=== PATIENT | female | born 1965 | race Caucasian/White ===

== ENCOUNTER → 2018-05-02 | Outpatient (CLI) | payer OTHER ==
--- NOTE | 2018-05-02 08:40 | US ---
EXAMINATION TYPE: US abdomen complete DATE OF EXAM: 05/02/2018 COMPARISON: NONE CLINICAL HISTORY: R14.0 Abdominal distension, R10.10 Upper abd pain. Bloating after meals EXAM MEASUREMENTS: Liver Length: 15.3 cm Gallbladder Wall: 0.2 cm CBD: 0.5 cm Spleen: 8.4 cm Right Kidney: 9.5 x 3.8 x 4.0 cm Left Kidney: 9.9 x 5.6 x 4.7 cm Pancreas: Duct visualized measuring 0.22 cm Liver: wnl Gallbladder: wnl Evidence for sonographic Charles's sign: No CBD: wnl Spleen: wnl Right Kidney: No hydronephrosis or masses seen Left Kidney: No hydronephrosis. Cystic area upper pole visualized measuring 1.5 x 1.6 x 1.5 cm Upper IVC: wnl Abd Aorta: wnl The liver is homogenous. The intrahepatic portion of the IVC and proximal abdominal aorta are within normal limits. There is no evidence of cholelithiasis. Common bile duct is unremarkable. The visu alized portions of the pancreas are homogenous. The spleen is unremarkable. Kidneys are symmetric a nd free of hydronephrosis. IMPRESSION: 1. Pancreatic duct is upper limits of normal measuring 0.22 cm (abnormal is a value of equal to or gr eater than 0.25 cm). This finding is of undetermined clinical significance and could be further evalu ated with MRCP if there is further clinical concern. No discrete pancreatic lesion is seen on ultraso und. 2. Benign-appearing 1.6 cm left renal cyst of the upper pole. 3. No sonographic evidence of cholelithiasis or acute cholecystitis.
== END ==
LOC: RADUSWWP 07:17
PROVIDERS: ATTEND Family Medicine
DX: N28.1 Cyst of kidney, acquired (principal); R10.10 Upper abdominal pain, unspecified
CPT/HCPCS: 76700

== ENCOUNTER → 2018-11-18 | Outpatient (CLI) | payer OTHER ==
[2018-11-18 12:47] LABS: Basophils # (A) 0.1 k/uL (0-0.2); Basophils % (A) 1 %; Eosinophils # (A) 0.1 k/uL (0-0.7); Eosinophils % (A) 2 %; HCT 44.2 % (34.0-46.0); HGB 14.1 gm/dL (11.4-16.0); Lymphocytes # (A) 1.9 k/uL (1.0-4.8); Lymphocytes % (A) 28 %; MCH 30.1 pg (25.0-35.0); MCHC 31.9 g/dL (31.0-37.0); MCV 94.6 fL (80.0-100.0); Mean Platelet Volume 7.5; Monocytes # (A) 0.3 k/uL (0-1.0); Monocytes % (A) 4 %; Neutrophils # (A) 4.4 k/uL (1.3-7.7); Neutrophils % (A) 63 %; Platelet Count 297 k/uL (150-450); RBC 4.67 m/uL (3.80-5.40); RDW 13.8 % (11.5-15.5); WBC 7.1 k/uL (3.8-10.6)
== END | disposition home or self-care (01) ==
LOC: LABPAT 11:13
PROVIDERS: ATTEND Surgery
DX: Z01.812 Encounter for preprocedural laboratory examination (principal); K21.9 Gastro-esophageal reflux disease without esophagitis
CPT/HCPCS: 85025

== ENCOUNTER 2018-11-20 09:57 | Observation (INO) | payer OTHER ==
[~2018-11-20 09:57] MED LIST: DEXAMETHASONE SOD PHOSPHATE 10 MG/ML 1 ML VIAL IV ONE; HEPARIN SODIUM,PORCINE 5,000 UNIT/ML 1 ML VIAL SQ ONE; LIDOCAINE 1% 20 ML VIAL (10MG/ML) FOR IV START INTRADERMA PRN; MIDAZOLAM 2 MG/2 ML VIAL IV PRN; ONDANSETRON 4 MG/2 ML VIAL IVP ONE; fentaNYL (PF) 50 MCG/ML 2 ML AMP IV PRN
[2018-11-20] MEDS: LACTATED RINGERS 1,000 ML IV SCH (10:32)
--- NOTE | 2018-11-20 11:34 | P.GSHP ---
History of Present Illness H&P Date: 11/20/18 Chief Complaint: GERD This is a 53-year-old female referred from Dr. Julia Piña.The patient has had long-standing problems with reflux esophagitis. The patient underwent recent EGD is found have evidence of esophagitis. Patient has been well informed on the procedure of laparoscopic Cori fundoplication. The patient is aware the risk of the conversion to the open procedure, risk of injury to the stomach, liver and spleen. The patient is also a risk of recurrent GERD and dysphagia symptoms. The patient understands there is a postoperative diet of full liquids for 2 weeks after surgery. Past Medical History Past Medical History: Diabetes Mellitus, GERD/Reflux, Osteoarthritis (OA), Pneumonia Additional Past Medical History / Comment(s): Chronic back pain, numbness/ tingling left arm and leg. Hx Pneumonia. Hx Gestational Diabetes. History of Any Multi-Drug Resistant Organisms: None Reported Past Surgical History: Orthopedic Surgery, Tubal Ligation Additional Past Surgical History / Comment(s): LEEP PROCEDURE, bunion surgery right foot. Past Anesthesia/Blood Transfusion Reactions: No Reported Reaction Past Psychological History: No Psychological Hx Reported Smoking Status: Current every day smoker Past Alcohol Use History: None Reported Additional Past Alcohol Use History / Comment(s): STARTED SMOKING AT AGE 18, 1/2 PPD. Past Drug Use History: Marijuana Additional Drug Use History / Comment(s): MEDICAL MARIJUANA, USES DAILY. AWARE NOT TO USE 24 HRS PRIOR TO PROCEDURE. - Past Family History Father Family Medical History: Cancer Mother Family Medical History: Cancer Medications and Allergies Home Medications Medication Instructions Recorded Confirmed Type Cyclobenzaprine [Flexeril] 5 mg PO TID PRN 11/14/18 11/20/18 History Ibuprofen [Motrin] 800 mg PO TID PRN 11/14/18 11/20/18 History valACYclovir HCL [Valtrex] 1,000 mg PO DIRECTED PRN 11/14/18 11/20/18 History Allergies Allergy/AdvReac Type Severity Reaction Status Date / Time povidone-iodine Allergy Itching,burning Verified 11/20/18 10:08 [From Betadine] skin soap [From Betadine] Allergy Itching,burning Verified 11/20/18 10:08 skin Surgical - Exam Vital Signs Temp Pulse Resp BP Pulse Ox 97 F L 67 15 115/72 97 11/20/18 10:30 11/20/18 10:30 11/20/18 10:30 11/20/18 10:30 11/20/18 10:30 - General well developed, well nourished, no distress - Eyes PERRL - ENT normal pinna - Neck no masses - Respiratory normal expansion - Cardiovascular Rhythm: regular - Abdomen Abdomen: soft, non tender Assessment and Plan Assessment: GERD. We'll perform laparoscopic Cori fundal plication.
[2018-11-20] MEDS ORDERED: PROPOFOL 10 MG/ML 20 ML VIAL IV ONE (12:01)
[2018-11-20] MEDS ORDERED: GLYCOPYRROLATE 0.2 MG/ML 2 ML VIAL ONE (12:01)
[2018-11-20] MEDS ORDERED: MIDAZOLAM 2 MG/2 ML VIAL ONE (12:01)
[2018-11-20] MEDS ORDERED: NEOSTIGMINE 1 MG/ML 10 ML VIAL ONE (12:01)
[2018-11-20] MEDS ORDERED: LIDOCAINE 1% INJ 10MG/ML (20 ML MDV) ONE (12:01)
[2018-11-20] MEDS ORDERED: ROCURONIUM BROMIDE 10 MG/ML 10 ML VIAL IV ONE (12:01)
[2018-11-20] MEDS ORDERED: fentaNYL (PF) 50 MCG/ML 2 ML AMP ONE (12:01)
[2018-11-20] MEDS ORDERED: LACTATED RINGERS 1,000 ML IV ONE ×2 (12:24→14:00)
[2018-11-20] MEDS ORDERED: BUPIVACAINE (PF) 0.5% 30 ML VIAL SQ ONE (12:31)
--- NOTE | 2018-11-20 13:02 | P.OP ---
Date of Procedure: 11/20/18 Preoperative Diagnosis: GERD Postoperative Diagnosis: GERD Procedure(s) Performed: Laparoscopic Cori fundoplication Anesthesia: RAYMOND Surgeon: Jacob Meyer Estimated Blood Loss (ml): 5 Pathology: none sent Condition: stable Disposition: PACU Description of Procedure: HThe patient was placed on the operating table in the supine position. The patient received general anesthesia. And was placed in dorsal lithotomy position. The patient was prepped and draped in the usual sterile fashion. The skin incision sites were anesthetized with 1% local Xylocaine. The skin was incised in the left periumbilical area and then using a blade less 5 mm trocar under direct visualization panel cavity was entered. After adequate insufflation the laparoscope was then placed into the peritoneal cavity. Next a 5 mm trochars placed in the right epigastric position. Another 5 millimeter trocar the right lateral position. Another 5 millimeter trocar in the left lateral position a 5 mm trocar is placed in the left epigastric position. And then the initial 5 mm trocar was exchanged for a 10 mm trocar. The left lateral lobe liver was retracted. The hernia was seen. The crural defect was then dissected using the Harmonic scissors device. A 360 crural dissection was performed the esophagus stomach was reduced back into the peritoneal Cavity. The crural defect was then closed using 2-0 Ethibond suture. Next the fundus of the stomach was mobilized using the [place] scissors device. and then a 58- Italian bougie dilator was placed oropharynx passed into the esophagus and stomach the fundal plication wrap was then performed by grasping the fundus posteriorly and bringing it around the esophagus and stomach fundoplication was then performed using 2-0 Ethibond suture. Care was taken that the fundal location rested over top of the intra-abdominal esophagus. There was no injury seen to the stomach or esophagus. The dilator was then withdrawn. The abdomen was irrigated there is no bleeding seen. The trochars were then withdrawn and then skin incision sites were closed using 3-0 Monocryl suture Steri-Strips are applied. Patient thought procedure well and sent to recovery room in stable condition.
[2018-11-20] MEDS ORDERED: ONDANSETRON 4 MG/2 ML VIAL IVP PRN (13:03)
[2018-11-20] MEDS ORDERED: HYDROmorphone 1 MG/ML 1 ML SYRINGE IVP PRN (13:03)
[2018-11-20] MEDS ORDERED: ALBUTEROL NEBULIZED 2.5 MG/3 ML INHALATION ONE (13:22)
[2018-11-20] MEDS: HYDROmorphone 0.5 MG/0.5 ML SYRINGE IVP PRN ×2 (13:49→13:56)
[2018-11-20] MEDS ORDERED: ONDANSETRON 4 MG/2 ML VIAL IVP ONE (14:07)
[2018-11-20] MEDS: D5-0.45% NACL WITH KCL 20MEQ/L 1,000 ML IV SCH ×2 (17:25→23:26)
[2018-11-20] MEDS ORDERED: Acetaminophen-Codeine 300-30mg TAB PO PRN (21:31)
--- NOTE | 2018-11-20 23:04 | P.CONS ---
History of Present Illness - Reason for Consult Consult date: 11/20/18 Medical management - Chief Complaint Status post Cori fundoplication - History of Present Illness Patient is a 52-year-old female with a known history of gestational diabetes, osteoarthritis, long history of GERD and chronic back pain on medical marijuana and also currently everyday smoker was admitted to the hospital due to tach to Cori fundoplication surgery. Patient has been having chronic GERD-like symptoms and recent EGD showed esophagitis. Patient opted for hiatal hernia surgery. Currently patient denied any complaints of chest pain or shortness of breath. Abdominal soreness is improving. Does have some nausea. No vomiting. No fever no chills. No headache or dizziness or lightheadedness. Postoperatively patient was hypotensive with SBP greater than 185 mmHg. Review of Systems Constitutional: Patient denies any fever or chills . No generalized weakness or weight loss. Abdomen: Patient denied nausea vomiting and diarrhea and abdominal pain. Soreness at the surgical site Cardiovascular: Patient denies any chest pain or short of breath no palpitations. Respiratory: patient denied any cough is from production. No shortness of breath Neurologic: Patient denied any numbness or tingling headache. Musculoskeletal: Patient denies any complaints of joint swelling or deformity. Skin: Negative Psychiatric: Negative Endocrine: No heat or cold intolerance. No recent weight gain. Genitourinary: No dysuria or hematuria. All other 14 point ROS negative except the above Past Medical History Past Medical History: Diabetes Mellitus, GERD/Reflux, Osteoarthritis (OA), Pneumonia Additional Past Medical History / Comment(s): Chronic back pain, nu mbness/tingling left arm and leg. Hx Pneumonia. Hx Gestational Diabetes. History of Any Multi-Drug Resistant Organisms: None Reported Past Surgical History: Orthopedic Surgery, Tubal Ligation Additional Past Surgical History / Comment(s): LEEP PROCEDURE, bunion surgery right foot. Past Anesthesia/Blood Transfusion Reactions: No Reported Reaction Past Psychological History: No Psychological Hx Reported Smoking Status: Current every day smoker Past Alcohol Use History: None Reported Additional Past Alcohol Use History / Comment(s): STARTED SMOKING AT AGE 18, 1/2 PPD. Past Drug Use History: Marijuana Additional Drug Use History / Comment(s): MEDICAL MARIJUANA, USES DAILY. AWARE NOT TO USE 24 HRS PRIOR TO PROCEDURE. - Past Family History Father Family Medical History: Cancer Mother Family Medical History: Cancer Medications and Allergies Home Medications Medication Instructions Recorded Confirmed Type Cyclobenzaprine [Flexeril] 5 mg PO TID PRN 11/14/18 11/20/18 History Ibuprofen [Motrin] 800 mg PO TID PRN 11/14/18 11/20/18 History valACYclovir HCL [Valtrex] 1,000 mg PO DIRECTED PRN 11/14/18 11/20/18 History Allergies Allergy/AdvReac Type Severity Reaction Status Date / Time povidone-iodine Allergy Itching,burning Verified 11/20/18 10:08 [From Betadine] skin soap [From Betadine] Allergy Itching,burning Verified 11/20/18 10:08 skin Physical Exam Vitals: Vital Signs Temp Pulse Pulse Resp BP Pulse Ox 11/20/18 14:35 53 L 16 149/70 97 11/20/18 14:20 52 L 16 162/81 95 11/20/18 14:15 50 L 16 98 11/20/18 14:05 49 L 16 163/88 98 11/20/18 14:00 51 L 18 155/77 97 11/20/18 13:50 97.9 F 60 14 181/79 95 11/20/18 13:45 59 L 20 160/77 97 11/20/18 13:30 60 16 170/73 100 11/20/18 13:15 73 16 185/89 99 11/20/18 13:07 97.4 F L 90 16 112/74 99 11/20/18 10:30 97 F L 67 15 115/72 97 Intake and Output 11/20/18 11/20/18 11/20/18 06:59 14:59 22:59 Intake Total 2250 Output Total 10 Balance 2240 Intake: IV 2250 Output: Estimated Blood Loss 10 PHYSICAL EXAMINATION: Patient is lying in the bed comfortably, no acute distress, awake alert and oriented.. HEENT: Normocephalic. Neck is supple. Pupils reactive. Nostrils clear. Oral cavity is moist. Ears reveal no drainage. Neck reveals no JVD, carotid bruits, or thyromegaly. CHEST EXAMINATION: Trachea is central. Symmetrical expansion. Lung ring clear to auscultation and percussion. CARDIAC: Normal S1, S2 with no gallops. No murmurs ABDOMEN: Soft. Nontender. Bowel sounds present. No organomegaly. No abdominal bruits. Extremities: reveal no edema. No clubbing or cyanosis Neurologically awake, alert, oriented x3 with well-coordinated movements. No focal deficits noted Skin: No rash or skin lesions. Psychiatric: Coperative. Nonsuicidal Musculoskeletal: No joint swelling or deformity. Normal range of motion. Assessment and Plan Assessment: GERD and esophagitis. Status post Cori fundoplication. Postoperative day 0 Gestational diabetes. Currently not on any medications at home Osteoarthritis Chronic back pain and on medical marijuana Nicotine addiction DVT prophylaxis with Lovenox Plan: Patient will be continued on gentle hydration. Continue with the DVT prophylaxis and incentive spirometry. Encourage ambulation. Pain management. Monitor CBG. Follow-up CBC and BMP tomorrow. Further recommendations based on the clinical course. Thank you for your consult. Time with Patient: Greater than 30
[2018-11-21] MEDS: LACTATED RINGERS 1,000 ML IV SCH (06:13)
[2018-11-21] MEDS: D5-0.45% NACL WITH KCL 20MEQ/L 1,000 ML IV SCH (08:17)
[2018-11-21] MEDS ORDERED: ENOXAPARIN 40 MG/0.4 ML SYRINGE SQ SCH (09:00)
[2018-11-21 09:02] LABS: Basophils % (A) 0 %; Eosinophils # (A) 0.1 k/uL (0-0.7); Eosinophils % (A) 1 %; HGB 12.1 gm/dL (11.4-16.0); Lymphocytes # (A) 1.9 k/uL (1.0-4.8); Lymphocytes % (A) 20 %; MCH 30.4 pg (25.0-35.0); MCHC 32.8 g/dL (31.0-37.0); MCV 92.7 fL (80.0-100.0); Mean Platelet Volume 7.4; Monocytes # (A) 0.6 k/uL (0-1.0); Monocytes % (A) 6 %; Neutrophils # (A) 6.7 k/uL (1.3-7.7); Neutrophils % (A) 71 %; Platelet Count 274 k/uL (150-450); RBC 3.99 m/uL (3.80-5.40); RDW 13.8 % (11.5-15.5); WBC 9.4 k/uL (3.8-10.6)
--- NOTE | 2018-11-21 09:20 | FL ---
EXAMINATION TYPE: FL esophagus cervic/pharynx DATE OF EXAM: 11/21/2018 LIMITED UGI-ESOPHAGRAM: CLINICAL HISTORY: Hiatal hernia and epigastric pain reflux-like symptoms, Jayy fundoplication surge ry yesterday. TECHNIQUE: Limited esophagram is performed utilizing 20 oz of Isovue 370. A total of 15 seconds of f luoroscopic time was utilized during procedure. 21 spot images are saved. FINDINGS: The patient swallowed contrast without difficulty or delay. Esophageal peristalsis and mo tility are within normal limits. There is good flow of contrast along the diaphragmatic hiatus into t he stomach, there is no evidence of contrast extravasation to suggest leak. No persistent hiatal corbin ia is seen. Patient remains asymptomatic. Tiny amount of free air below right hemidiaphragm is consis tent with history of recent intra-abdominal surgery IMPRESSION: No evidence of leak or significant obstruction status post Jayy fundoplication surgery yesterday.
[2018-11-21 09:22] LABS: African American GFR (CKD) >90 (>60 ml/min/1.73 sqM); Anion Gap 7 mmol/L; Blood Urea Nitrogen 10 mg/dL (7-17); Carbon Dioxide 25 mmol/L (22-30); Chloride 107 mmol/L (98-107); Glucose 92 mg/dL (74-99); Potassium 4.1 mmol/L (3.5-5.1); Sodium 139 mmol/L (137-145)
[2018-11-21 09:48] VITALS: BP 142/87; PULSE 54; RESP 20; TEMP 97.6
[2018-11-21 13:08] VITALS: BMI 30.7
--- NOTE | 2018-11-21 14:13 | P.DS ---
Providers Date of admission: 11/20/18 23:32 Expected date of discharge: 11/21/18 Attending physician: Jacob Meyer Consults: 11/20/18 13:03 Consult Physician Routine Consulting Provider: Bernardo Perez Consult Reason/Comments: Medical management Do you want consulting provider notified?: Yes Primary care physician: [facility] Course: 53-year-old female who underwent laparoscopic Cori fundoplication with Dr. Meyer. Patient is doing well postoperatively without any immediate complications. She is tolerating clear liquid diet. Her pain is controlled on oral medications. Vital signs have been stable. Esophagram completed postoperatively negative for leak or obstruction. Patient is stable for discharge home today. Please see EMR for further hospital course details. Discharge diagnosis 1. GERD, status post laparoscopic Cori fundoplication Nurse practitioner note has been reviewed by physician. Signing provider agrees with the documented findings, assessment, and plan of care. Patient Condition at Discharge: Good Plan - Discharge Summary Discharge Rx Participant: Yes New Discharge Prescriptions: New Acetaminophen-Codeine 300-30mg [Tylenol w/codeine #3] 2 each PO Q6HR PRN #12 tab PRN Reason: MODERATE Pain No Action Cyclobenzaprine [Flexeril] 5 mg PO TID PRN PRN Reason: Muscle Spasm valACYclovir HCL [Valtrex] 1,000 mg PO DAILY PRN PRN Reason: Cold Sores Ibuprofen [Motrin] 800 mg PO TID PRN PRN Reason: Pain Discharge Medication List Cyclobenzaprine [Flexeril] 5 mg PO TID PRN 11/14/18 [History] Ibuprofen [Motrin] 800 mg PO TID PRN 11/14/18 [History] valACYclovir HCL [Valtrex] 1,000 mg PO DAILY PRN 11/14/18 [History] Acetaminophen-Codeine 300-30mg [Tylenol w/codeine #3] 2 each PO Q6HR PRN #12 tab 11/21/18 [Rx] Follow up Appointment(s)/Referral(s): Jacob Meyer MD [STAFF PHYSICIAN] - 12/03/18 3:00 pm Activity/Diet/Wound Care/Special Instructions: full liquid diet for 2 weeks handout given and dietary has seen patient. No lifting pushing pulling over 10 pounds You may shower. No soaking or tub baths swimming pools Very light activity until you are reevaluated at your follow up appointment with your surgeon. Call physician with any questions comments concerns worsening returning symptoms, fever 101.1 or higher, not tolerating diet, not tolerating fluids, pain not controlled by medications prescribed. Appt for follow up has been made for you. Discharge Disposition: HOME SELF-CARE
== END 2018-11-21 11:40 | disposition home or self-care (01) ==
LOC: OR 09:57 → 6PED 13:03 → OR 23:31 → 6PED 23:32
PROVIDERS: ADMIT Surgery; ATTEND Surgery
DX: K21.0 Gastro-esophageal reflux disease with esophagitis (principal); I95.81 Postprocedural hypotension; R11.0 Nausea; M19.90 Unspecified osteoarthritis, unspecified site; G89.29 Other chronic pain; M54.9 Dorsalgia, unspecified; R20.0 Anesthesia of skin; R20.2 Paresthesia of skin; F17.210 Nicotine dependence, cigarettes, uncomplicated; Z79.1 Long term (current) use of non-steroidal anti-inflammatories (NSAID); Z79.899 Other long term (current) drug therapy; Z88.8 Allergy status to other drugs, medicaments and biological substances; Z86.32 Personal history of gestational diabetes; Z98.51 Tubal ligation status; Z87.01 Personal history of pneumonia (recurrent); Z80.9 Family history of malignant neoplasm, unspecified
CPT/HCPCS: 43280; 96372; 86900; 86901; 80048; 85025; 86850; 74210; G0378 ×2; J2250; J1644; J1100; J2710; J0690; J2405; J2001; J1650; J3010; J1170 ×2; J2704; Q9967

== ENCOUNTER → 2019-07-04 | Outpatient (CLI) | payer OTHER ==
--- NOTE | 2019-07-04 09:00 | NM ---
EXAMINATION TYPE: NM hepatobiliary w CCK DATE OF EXAM: 07/04/2019 COMPARISON: Abdominal ultrasound dated 05/02/2018 HISTORY: Abdominal pain TECHNIQUE: After the intravenous administration of 5.1 mCi Tc 99m Mebrofenin hepatobiliary scintigrap hy is performed. Immediate images post injection. FINDINGS: There is satisfactory initial accumulation of tracer by the liver. The gallbladder is visualized wit hin 8 minutes. The small bowel activity is noted within 10 minutes. At one hour CCK was administere d, patient was injected with 1.3 mcg of Kinevac, and gallbladder ejection fraction is calculated at 9 3 %, elevated. Therefore there is no scintigraphic evidence of cystic or common bile duct obstructio n to suggest acute cholecystitis or gallbladder dyskinesia. IMPRESSION: Biliary hyperkinesia with elevated ejection fraction of 93%. No scintigraphic evidence of acute or chronic cholecystitis.
== END | disposition home or self-care (01) ==
LOC: RADNMMAIN 06:54
PROVIDERS: ATTEND Surgery
DX: K83.8 Other specified diseases of biliary tract (principal)
CPT/HCPCS: 78227; A9537; J2805

== ENCOUNTER 2019-07-15 06:35 | Day surgery (SDC) | payer OTHER ==
[2019-07-11 10:41] VITALS: BMI 28.3
[~2019-07-15 06:35] MED LIST changes: +HYDROmorphone 0.5 MG/0.5 ML SYRINGE IVP PRN; +LACTATED RINGERS 1,000 ML IV SCH; -LIDOCAINE 1% 20 ML VIAL (10MG/ML) FOR IV START INTRADERMA PRN; -ONDANSETRON 4 MG/2 ML VIAL IVP ONE; +SCOPOLAMINE 1.5MG/72HR PATCH TRANSDERM ONE; -fentaNYL (PF) 50 MCG/ML 2 ML AMP IV PRN
[2019-07-15] MEDS ORDERED: LIDOCAINE 1% (10MG/ML) FOR IV START INTRADERMA ONE (07:20)
[2019-07-15] MEDS: ONDANSETRON 4 MG/2 ML VIAL IVP ONE ×2 (07:20→08:56)
[2019-07-15] MEDS ORDERED: HYDROmorphone (PF) 1 MG/ML ONE (07:48)
[2019-07-15] MEDS ORDERED: NEOSTIGMINE 1 MG/ML 10 ML VIAL ONE (07:48)
[2019-07-15] MEDS ORDERED: ROCURONIUM BROMIDE 10 MG/ML 5 ML VIAL IV ONE (07:48)
[2019-07-15] MEDS ORDERED: MIDAZOLAM 2 MG/2 ML VIAL ONE (07:48)
[2019-07-15] MEDS ORDERED: LIDOCAINE 1% INJ 10MG/ML (20 ML MDV) ONE (07:48)
[2019-07-15] MEDS ORDERED: PROPOFOL 10 MG/ML 20 ML VIAL IV ONE (07:48)
[2019-07-15] MEDS ORDERED: GLYCOPYRROLATE 0.2 MG/ML 2 ML VIAL ONE (07:48)
[2019-07-15] MEDS ORDERED: fentaNYL (PF) 50 MCG/ML 2 ML AMP ONE (07:48)
[2019-07-15] MEDS ORDERED: KETOROLAC 30 MG/ML 1 ML VIAL ONE (07:48)
[2019-07-15] MEDS ORDERED: SUCCINYLCHOLINE CHLORIDE 100 MG/5 ML SYR IV ONE (07:48)
--- NOTE | 2019-07-15 07:58 | P.GSHP ---
History of Present Illness H&P Date: 07/15/19 Chief Complaint: Right upper quadrant pain This a 54-year-old female presents today for laparoscopic cholecystectomy. Patient points of abdominal pain. Her recent HIDA scan shows an abnormal ejection fraction. Past Medical History Past Medical History: GERD/Reflux, Osteoarthritis (OA), Pneumonia Additional Past Medical History / Comment(s): MIGRAINES, HX OF GERD-RESOLVED WITH HIATAL HERNIA REPAIR., GESTATIONAL DIABETES, PNEUMONIA YRS AGO., CONSTIPATION ,C/O PAIN AND BLOATING. History of Any Multi-Drug Resistant Organisms: None Reported Past Surgical History: Orthopedic Surgery, Tubal Ligation Additional Past Surgical History / Comment(s): LEEP PROCEDURE, bunion surgery right foot., LAPAROSCOPIC DANITZA FUNDOPLICATION (10/2018) Past Anesthesia/Blood Transfusion Reactions: No Reported Reaction Past Psychological History: No Psychological Hx Reported Smoking Status: Current every day smoker Past Alcohol Use History: None Reported Additional Past Alcohol Use History / Comment(s): STARTED SMOKING AT AGE 18, SMOKES 1/2 PPD. Past Drug Use History: Marijuana Additional Drug Use History / Comment(s): CURRENT MARIJUANA USE. AWARE NOT TO USE 24 HRS PRIOR TO PROCEDURE. - Past Family History Father Family Medical History: Cancer Mother Family Medical History: Cancer Medications and Allergies Home Medications Medication Instructions Recorded Confirmed Type Ibuprofen [Motrin] 800 mg PO TID PRN 11/14/18 07/15/19 History Acetaminophen-Codeine 300-30mg 1 each PO DIRECTED PRN 07/11/19 07/15/19 History [Tylenol w/codeine #3] Temazepam [Restoril] 30 mg PO HS PRN 07/11/19 07/15/19 History Allergies Allergy/AdvReac Type Severity Reaction Status Date / Time povidone-iodine Allergy Itching,burning Verified 07/11/19 10:07 [From Betadine] skin soap [From Betadine] Allergy Itching,burning Verified 07/11/19 10:07 skin Surgical - Exam Vital Signs Temp Pulse Resp BP Pulse Ox 97.4 F L 69 16 129/68 96 07/15/19 07:05 07/15/19 07:05 07/15/19 07:05 07/15/19 07:05 07/15/19 07:05 - General well developed, well nourished, no distress - Eyes PERRL - ENT normal pinna - Neck no masses - Respiratory normal expansion - Cardiovascular Rhythm: regular - Abdomen Abdomen: soft, non tender Assessment and Plan Assessment: Right quadrant pain Chronic cholecystitis We'll perform laparoscopic cholecystectomy
[2019-07-15] MEDS ORDERED: BUPIVACAINE (PF) 0.25% 30 ML VIAL SQ ONE (08:24)
[2019-07-15 08:54] VITALS: TEMP 97
--- NOTE | 2019-07-15 09:03 | P.OP ---
Date of Procedure: 07/15/19 Preoperative Diagnosis: Cholecystitis Postoperative Diagnosis: Cholecystitis Procedure(s) Performed: Laparoscopic cholecystectomy Anesthesia: RAYMOND Surgeon: Jacob Meyre Estimated Blood Loss (ml): 5 Pathology: other (Gallbladder) Condition: stable Disposition: PACU Description of Procedure: The patient was placed on the operating table. The patient received a general endotracheal tube anesthesia. The patients abdomen was prepped and draped in the usual sterile fashion. Through an infraumbilical stab incision, the fascia of the anterior abdominal wall was grasped with a pair of Kochers and then the Veress needle was placed in the peritoneal cavity. Position of the Veress needle was confirmed with positive drop test. The abdomen was then insufflated. After adequate insufflation, the 10 mm trocar was placed in the peritoneal cavity. Following this the laparoscope was placed in the peritoneal cavity. The patient was placed in the head-up, right side up position and then a 5 mm trocar was placed in the right lateral and right subcostal position under direct visualization. A 8 mm trocar was placed in the epigastric position. The gallbladder was grasped in the fundus and infundibulum. Traction on the gallbladder was placed in the lateral and the cephalad positions. The triangle of Calot was visualized.. The cystic duct was bluntly dissected until the union of the cystic duct and common bile duct was seen. A critical view of safety was achieved. The cystic duct was then divided and sealed with the Harmonic scissors. A PDS Endoloop was then placed throughout the cystic duct stump. The cystic artery divided and sealed with the Harmonic scissors. The gallbladder was then removed from the liver bed using Harmonic scissors. The gallbladder was then extracted through the epigastric port site. Operative field was checked for any bleeding spots and Harmonic scissors was used to coagulate the liver bed. The abdomen was irrigated. The trocars were removed. The skin was closed using interrupted 3-0 Vicryl suture. Dermabond dressing were applied. The patient tolerated the procedure well.
[2019-07-15] MEDS ORDERED: diphenhydrAMINE 50 MG/ML 1 ML VIAL IVP ONE (09:35)
[2019-07-15 11:46] VITALS: BP 102/61; PULSE 61; RESP 16
== END 2019-07-15 12:32 | disposition home or self-care (01) ==
LOC: OR 06:35
PROVIDERS: ATTEND Surgery
DX: K81.1 Chronic cholecystitis (principal); M19.90 Unspecified osteoarthritis, unspecified site; Z87.01 Personal history of pneumonia (recurrent); Z86.32 Personal history of gestational diabetes; Z98.51 Tubal ligation status; Z98.890 Other specified postprocedural states; F17.210 Nicotine dependence, cigarettes, uncomplicated; Z80.9 Family history of malignant neoplasm, unspecified; Z79.1 Long term (current) use of non-steroidal anti-inflammatories (NSAID); Z79.891 Long term (current) use of opiate analgesic; Z88.3 Allergy status to other anti-infective agents
CPT/HCPCS: 88304; 47562; J2250; J1200; J1644; J1100; J2710; J0690; J2405; J2001; J3010; J1885; J1170 ×2; J0330; J2704

== ENCOUNTER 2020-09-09 09:46 | Day surgery (SDC) | payer OTHER ==
[2020-09-07 10:48] VITALS: BMI 30.1
[2020-09-09 10:32] VITALS: TEMP 98
[2020-09-09] MEDS ORDERED: LACTATED RINGERS 1,000 ML IV ONE (10:35)
[2020-09-09] MEDS ORDERED: LIDOCAINE 1% (10MG/ML) FOR IV START INTRADERMA ONE (10:36)
[2020-09-09] MEDS ORDERED: LIDOCAINE 1% INJ 10MG/ML (20 ML MDV) ONE (11:10)
[2020-09-09] MEDS ORDERED: GLUCAGON 1 MG/ML VIAL ONE (11:10)
[2020-09-09] MEDS ORDERED: PROPOFOL 10 MG/ML 20 ML VIAL IV ONE (11:10)
--- NOTE | 2020-09-09 11:10 | P.GSHP ---
History of Present Illness H&P Date: 09/09/20 Chief Complaint: GERD, constipation This a 55-year-old female presents today for EGD colonoscopy. She he has had issues with GERD constipation diverticulitis. Past Medical History Past Medical History: GERD/Reflux, Osteoarthritis (OA), Pneumonia, Skin Disorder Additional Past Medical History / Comment(s): MIGRAINES, HX HIATAL HERNIA REPAIR., GESTATIONAL DIABETES, PNEUMONIA YRS AGO., CONSTIPATION, small bowel movement, some incontinence of stool, abdominal PAIN AND BLOATING. high BP when in pain-no rx, eczema, neuropathy shivani legs History of Any Multi-Drug Resistant Organisms: None Reported Past Surgical History: Cholecystectomy, Orthopedic Surgery, Tubal Ligation Additional Past Surgical History / Comment(s): LEEP PROCEDURE, bunion surgery right foot., LAPAROSCOPIC DANITZA FUNDOPLICATION (10/2018), left eye tear duct surgery Past Anesthesia/Blood Transfusion Reactions: No Reported Reaction Smoking Status: Current every day smoker - Past Family History Father Family Medical History: Cancer Mother Family Medical History: Cancer Medications and Allergies Home Medications Medication Instructions Recorded Confirmed Type Temazepam [Restoril] 30 mg PO HS PRN 07/11/19 09/09/20 History Gabapentin [Neurontin] 300 mg PO TID 09/07/20 09/09/20 History Naproxen 500 mg PO BID PRN 09/07/20 09/09/20 History Allergies Allergy/AdvReac Type Severity Reaction Status Date / Time povidone-iodine Allergy Itching,burning Verified 09/07/20 10:35 [From Betadine] skin,rash soap [From Betadine] Allergy Itching,burning Verified 09/07/20 10:35 skin,rash acetaminophen [From [place]] AdvReac Nausea Verified 09/07/20 10:35 hydrocodone [From [place]] AdvReac Nausea Verified 09/07/20 10:35 Surgical - Exam Vital Signs Temp Pulse Resp BP Pulse Ox 98.0 F 69 16 163/73 98 09/09/20 10:31 09/09/20 10:31 09/09/20 10:31 09/09/20 10:31 09/09/20 10:31 - General well developed, well nourished, no distress - Eyes PERRL - ENT normal pinna - Neck no masses - Respiratory normal expansion - Cardiovascular Rhythm: regular - Abdomen Abdomen: soft, non tender Assessment and Plan Assessment: . Constipation history Dr. Modi. We'll perform EGD and colonoscopy
--- NOTE | 2020-09-09 11:35 | P.OP ---
Date of Procedure: 09/09/20 Preoperative Diagnosis: Constipation Gastritis Postoperative Diagnosis: Antral gastritis Possible slipped fundoplication wrap Procedure(s) Performed: EGD Colonoscopy Anesthesia: MAC Surgeon: Jacob Meyer Pathology: other (Antrum, esophagus) Condition: stable Disposition: PACU Description of Procedure: The patient's placed on the endoscopy table in the lateral position. She received IV sedation. The gastroscope placed oropharynx passed in the esophagus and the stomach. The scope was placed through the pylorus. The first and second portion of the duodenum appeared normal. Scope was brought back the antrum this was mildly inflamed. A biopsies performed. Scope was retroflexed meters some appeared normal. There is known to hiatal hernia. The GE junction was at 39 7 is. It appears the fundoplication wrap was just below the esophagus. The distal esophagus was mildly inflamed. Biopsies performed. The proximal esophagus appeared normal. Scope was withdrawn for patient. Next digital rectal exam was performed which revealed no abnormalities. The flexible colonoscope was then placed patient anus passed throughout the entire colon. Ileocecal valve lesions. The cecum, ascending and transverse colon appeared normal. In the descending and sigmoid was mild diverticular changes. Scope summer back the rectum and this appeared normal. Scope was withdrawn for patient.
[2020-09-09 12:03] VITALS: BP 136/80; PULSE 68; RESP 16
== END 2020-09-09 12:32 | disposition home or self-care (01) ==
LOC: ORWHC2ENDO 09:46
PROVIDERS: ATTEND Surgery
DX: K21.00 Gastro-esophageal reflux disease with esophagitis, without bleeding (principal); K57.30 Diverticulosis of large intestine without perforation or abscess without bleeding; K29.70 Gastritis, unspecified, without bleeding; K59.00 Constipation, unspecified; M19.90 Unspecified osteoarthritis, unspecified site; Z87.01 Personal history of pneumonia (recurrent); L30.9 Dermatitis, unspecified; G43.909 Migraine, unspecified, not intractable, without status migrainosus; G62.9 Polyneuropathy, unspecified; Z90.49 Acquired absence of other specified parts of digestive tract; Z98.51 Tubal ligation status; Z98.890 Other specified postprocedural states; F17.200 Nicotine dependence, unspecified, uncomplicated; Z80.9 Family history of malignant neoplasm, unspecified; Z88.5 Allergy status to narcotic agent; Z88.8 Allergy status to other drugs, medicaments and biological substances
CPT/HCPCS: 88305; 45378; 43239; J1610; J2001; J2704

== ENCOUNTER → 2022-11-29 | Outpatient (CLI) | payer OTHER ==
--- NOTE | 2022-11-29 20:27 | CT ---
EXAMINATION TYPE: CT abdomen w con DATE OF EXAM: 11/29/2022 COMPARISON: None INDICATION: Incisional hernia without obstruction. PT also concerned for BB marked area on LT side DLP: 524.30 mGycm, Automated exposure control for dose reduction was used. CONTRAST: 100 mL of Isovue 300. Study performed with Oral Contrast TECHNIQUE: Axial images were obtained from above the diaphragm to the iliac crests in the axial plane at 5 mm thick sections. Reconstructed images are reviewed on the computer in the coronal plane. FINDINGS: Limited CT sections are obtained the lung bases. The lung bases are clear. CT ABDOMEN: Liver: Normal Spleen: Normal Pancreas: Normal Adrenal glands: Left adrenal gland is thickened at 1.7 cm. Right adrenal gland appears normal. Gallbladder: Normal Kidneys: No masses are evident. No hydronephrosis is present. There is a 2.3 cm cyst on the left ki dney small cortical renal cysts in the upper medial right kidney on delayed images. Aorta: Vascular calcification is within the aorta. Inferior vena cava: Normal. Loops of bowel within the abdomen are normal. There are loops of bowel which are incompletely di stended or lack oral contrast limiting their evaluation. BB boyle an area of concern in the left flank of the patient, series 6 image 38. No subcutaneous abno rmality is evident. Abdominal wall at this level appears normal. No suspicious abnormality radiograph ically apparent. Abdominal wall appears intact. No abdominal wall hernia is identified IMPRESSIONS: 1. No suspicious areas for hernia or masses
== END | disposition home or self-care (01) ==
LOC: RADCTMAIN 11:42
PROVIDERS: ATTEND Surgery
DX: K43.2 Incisional hernia without obstruction or gangrene (principal)
CPT/HCPCS: 74160; Q9967

== ENCOUNTER 2022-12-25 05:54 | Day surgery (SDC) | payer OTHER ==
[~2022-12-25 05:54] MED LIST changes: +ACETAMINOPHEN TAB 500 MG TAB PO PRN; -DEXAMETHASONE SOD PHOSPHATE 10 MG/ML 1 ML VIAL IV ONE; -HEPARIN SODIUM,PORCINE 5,000 UNIT/ML 1 ML VIAL SQ ONE; +HEPARIN SODIUM,PORCINE/PF 5,000 UNIT/0.5 ML SYRINGE SQ PRN; -HYDROmorphone 0.5 MG/0.5 ML SYRINGE IVP PRN; -LACTATED RINGERS 1,000 ML IV SCH; -MIDAZOLAM 2 MG/2 ML VIAL IV PRN; +Pre Op ABX Message 1 EACH MISC MISCELLANE ONE; -SCOPOLAMINE 1.5MG/72HR PATCH TRANSDERM ONE
[2022-12-25] MEDS ORDERED: ONDANSETRON 4 MG/2 ML VIAL IVP ONE (06:35)
[2022-12-25] MEDS ORDERED: LACTATED RINGERS 1,000 ML IV SCH (06:35)
[2022-12-25] MEDS ORDERED: DEXAMETHASONE SOD PHOSPHATE 4 MG/ML 1 ML VIAL IV ONE (06:35)
[2022-12-25 07:03] LABS: Basophils % (A) 0 %; Eosinophils # (A) 0.2 k/uL (0-0.7); Eosinophils % (A) 2 %; HCT 42.9 % (34.0-46.0); HGB 14.3 gm/dL (11.4-16.0); Lymphocytes # (A) 2.8 k/uL (1.0-4.8); Lymphocytes % (A) 39 %; MCH 31.2 pg (25.0-35.0); MCHC 33.3 g/dL (31.0-37.0); MCV 93.6 fL (80.0-100.0); Mean Platelet Volume 7.8; Monocytes # (A) 0.4 k/uL (0-1.0); Monocytes % (A) 5 %; Neutrophils # (A) 3.7 k/uL (1.3-7.7); Neutrophils % (A) 52 %; Platelet Count 268 k/uL (150-450); RBC 4.58 m/uL (3.80-5.40); RDW 13.7 % (11.5-15.5); WBC 7.1 k/uL (3.8-10.6)
[2022-12-25] MEDS ORDERED: BUPIVACAINE (PF) 0.25% 10 ML VIAL SQ ONE ×3 (07:29→07:55)
[2022-12-25] MEDS ORDERED: SUGAMMADEX SODIUM 200 MG/2 ML SDV IV ONE (07:34)
[2022-12-25] MEDS ORDERED: SUCCINYLCHOLINE CHLORIDE 200 MG/10 ML VIAL IV ONE (07:34)
[2022-12-25] MEDS ORDERED: fentaNYL (PF) 50 MCG/ML 2 ML AMP ONE (07:34)
[2022-12-25] MEDS ORDERED: MIDAZOLAM 2 MG/2 ML VIAL ONE (07:34)
[2022-12-25] MEDS ORDERED: ROCURONIUM 10 MG/ML (5 ML VIAL) IV ONE (07:34)
[2022-12-25] MEDS ORDERED: PROPOFOL 10 MG/ML 20 ML VIAL IV ONE (07:34)
[2022-12-25] MEDS ORDERED: LIDOCAINE 2% INJ 20 MG/ML (2 ML VIAL) ONE (07:34)
--- NOTE | 2022-12-25 08:19 | P.OP ---
Date of Procedure: 12/25/22 Preoperative Diagnosis: Adhesions Postoperative Diagnosis: Adhesions Procedure(s) Performed: Laparoscopic lysis of adhesions Anesthesia: RAYMOND Surgeon: Jacob Meyer Estimated Blood Loss (ml): 5 Pathology: none sent Condition: stable Disposition: PACU Description of Procedure: The patient's placed on the operative table in the supine position. She received IV sedation. She then received general endotracheal tube anesthesia. Her abdomen was prepped and draped usual sterile fashion. The skin was anesthetized 1% local Xylocaine. Using an 11 blade a skin incision was made in the infra umbilical position. A pair of [employer] clamps used to grasp the fascia. The Veress needles placed into the peritoneal cavity. Position Veress needle was confirmed with a positive drop test. The abdomen was inspected. After adequate insufflation a 5 mm trocar was placed into the pleural cavity. The laparoscope was placed spell. Next a 5 mm trochars placed in the epigastric and suprapubic position. The patient had complaints of left side of her abdomen. There were some adhesions noted on the left abdominal wall. These were lysed with sharp dissection and Harmonic scissors. There were no other adhesions seen. There were no significant adhesions in the small bowel. At this point the trochars withdrawn. The skin was closed interrupted 3-0 Monocryl suture. Dermabond dressing applied. Patient top she will she was sent to recovery room in stable condition.
[2022-12-25 08:26] VITALS: TEMP 96.8
[2022-12-25 08:36] VITALS: RESP 16
[2022-12-25] MEDS: fentaNYL (PF) 50 MCG/ML 2 ML AMP IV PRN ×2 (08:55→09:02)
[2022-12-25] MEDS ORDERED: LACTATED RINGERS 1,000 ML IV ONE (09:11)
[2022-12-25 10:07] VITALS: BP 138/88; PULSE 64
== END 2022-12-25 10:22 | disposition home or self-care (01) ==
LOC: OR 05:54
PROVIDERS: ATTEND Surgery
DX: K56.50 Intestinal adhesions [bands], unspecified as to partial versus complete obstruction (principal); R42 Dizziness and giddiness; E11.9 Type 2 diabetes mellitus without complications; K21.9 Gastro-esophageal reflux disease without esophagitis; M19.90 Unspecified osteoarthritis, unspecified site; J18.9 Pneumonia, unspecified organism; F17.200 Nicotine dependence, unspecified, uncomplicated; K44.9 Diaphragmatic hernia without obstruction or gangrene; G43.909 Migraine, unspecified, not intractable, without status migrainosus; Z90.49 Acquired absence of other specified parts of digestive tract; Z98.890 Other specified postprocedural states; Z80.9 Family history of malignant neoplasm, unspecified; Z79.891 Long term (current) use of opiate analgesic
CPT/HCPCS: 85025; 44180; J2250; J0330; J1100; J0690; J2405; J3010; J2704; J1644; J2001; J0665

== ENCOUNTER 2024-10-23 07:35 | Day surgery (SDC) | payer BC ==
[2024-10-22 10:00] VITALS: BMI 24.4
[~2024-10-23 07:35] MED LIST changes: -ACETAMINOPHEN TAB 500 MG TAB PO PRN; -HEPARIN SODIUM,PORCINE/PF 5,000 UNIT/0.5 ML SYRINGE SQ PRN; +LIDOCAINE 1% (10MG/ML) FOR IV START INTRADERMA PRN; -Pre Op ABX Message 1 EACH MISC MISCELLANE ONE
[2024-10-23] MEDS: IV FLUID CONTINUATION 1,000 ML IV ONE (08:03)
[2024-10-23] MEDS: LACTATED RINGERS 1,000 ML IV SCH (08:11)
[2024-10-23 08:15] VITALS: TEMP 97.4
[2024-10-23] MEDS ORDERED: GLUCAGON 1 MG/ML VIAL ONE (08:32)
[2024-10-23] MEDS ORDERED: PROPOFOL 10 MG/ML 20 ML VIAL IV ONE (08:32)
--- NOTE | 2024-10-23 08:38 | P.GSHP ---
History of Present Illness H&P Date: 10/23/24 Chief Complaint: Screening colonoscopy, left lower quadrant pain This a 59-year-old female who presents today for screening colonoscopy. Patient has complaints of left lower quadrant pain. Past Medical History Past Medical History: GERD/Reflux, Osteoarthritis (OA), Pneumonia, Skin Disorder Additional Past Medical History / Comment(s): MIGRAINES, , GESTATIONAL DIABETES,, CONSTIPATION, small bowel movement, some incontinence of stool, abdominal PAIN AND BLOATING. high BP when in pain-no rx, eczema, neuropathy shivani legs History of Any Multi-Drug Resistant Organisms: None Reported Past Surgical History: Cholecystectomy, Hernia Repair, Orthopedic Surgery, Tubal Ligation Additional Past Surgical History / Comment(s): LEEP PROCEDURE, bunion surgery right foot., LAPAROSCOPIC DANITZA FUNDOPLICATION (10/2018), left eye tear duct surgery, COLONOSCOPY, EGD Past Anesthesia/Blood Transfusion Reactions: No Reported Reaction Smoking Status: Current every day smoker - Past Family History Father Family Medical History: Cancer Mother Family Medical History: Cancer Medications and Allergies Home Medications Medication Instructions Recorded Confirmed Type No Known Home Medications 10/22/24 10/23/24 History Allergies Allergy/AdvReac Type Severity Reaction Status Date / Time povidone-iodine Allergy Itching,burning Verified 10/23/24 07:56 [From Betadine] skin,rash soap [From Betadine] Allergy Itching,burning Verified 10/23/24 07:56 skin,rash acetaminophen [From Fountain] AdvReac Nausea Verified 10/23/24 07:56 hydrocodone [From Fountain] AdvReac Nausea Verified 10/23/24 07:56 Surgical - Exam Vital Signs Temp Pulse Resp BP Pulse Ox 97.4 F L 86 16 127/92 98 10/23/24 08:10 10/23/24 08:10 10/23/24 08:10 10/23/24 08:10 10/23/24 08:10 - General well developed, well nourished, no distress - Eyes PERRL - ENT normal pinna - Neck no masses - Respiratory normal expansion - Cardiovascular Rhythm: regular - Abdomen Abdomen: soft, non tender Assessment and Plan Plan: Left lower quadrant pain. Screening colonoscopy.
--- NOTE | 2024-10-23 09:06 | P.OP ---
Date of Procedure: 10/23/24 Preoperative Diagnosis: Screening colonoscopy Left lower quadrant pain Postoperative Diagnosis: Tortuous colon Procedure(s) Performed: Colonoscopy Anesthesia: RAYMOND Surgeon: Jacob Meyer Pathology: none sent Condition: stable Disposition: PACU Description of Procedure: The patient was placed on the endoscopy table in the lateral position. She received IV sedation. Digital rectal exam performed which revealed no abnormality. Was then placed patient anus and passed into the sigmoid colon. Sigmoid colon was very tortuous. Several times were made to maneuver the colonoscope, this was not able to be performed. This point the scope withdrawn. A pediatric scope was then placed. This was able to be placed into the left colon however due to tortuosity of the bowel the colonoscope could not be advanced. Scope scope withdrawn. The patient had very tortuous colon. Patient was scheduled for barium enema.
[2024-10-23 09:28] VITALS: BP 136/94; PULSE 70; RESP 16
--- NOTE | 2024-10-23 13:35 | FL ---
EXAMINATION TYPE: FL barium enema w air contrast DATE OF EXAM: 10/23/2024 12:28 PM CLINICAL INDICATION:Female, 59 years old with history of Left lower quadrant pain, screening; COMPARISON: CT 11/29/2022 TECHNIQUE: The procedure was explained and patient history elicited. All patient questions were answ ered prior to beginning. Multiple spot fluoroscopic images of the colon were obtained after the recta l administration of liquid barium as the contrast agent. Multiple postprocedural overhead images, w ere obtained and reviewed. DAP: NOT REPORTED [id number] FINDINGS: The electrical and instrumentation manager abdominal radiograph demonstrates a normal bowel gas pattern without dilated loo ps of small or large bowel. There is no evidence for organomegaly or pneumoperitoneum. No abnormal calcifications. The visualized osseous structures are intact. There is a short segment of nondistention involving the sigmoid colon extending approximately 4.7 cm. The remainder of the colon demonstrates normal course and contour without evidence of focal strictur e, internal filling defects, or abnormal outpouching. Views of the cecum with manual compression are unremarkable. The appendix is visualized. Postevacuation images are unremarkable. IMPRESSION: Short segment of narrowing of the sigmoid colon which did not distend up to 4.7 cm in length. Finding concerning for malignancy until proven otherwise. CT recommended with IV and rectal contrast [facility] Vanesa Pulido, , 10/23/2024 1:33 PM
== END 2024-10-23 11:20 | disposition home or self-care (01) ==
LOC: ORWHC2ENDO 07:35
PROVIDERS: ATTEND Surgery
DX: K63.89 Other specified diseases of intestine (principal); M19.90 Unspecified osteoarthritis, unspecified site; G43.909 Migraine, unspecified, not intractable, without status migrainosus; G62.9 Polyneuropathy, unspecified; F41.9 Anxiety disorder, unspecified; F17.210 Nicotine dependence, cigarettes, uncomplicated; Z88.5 Allergy status to narcotic agent; Z88.8 Allergy status to other drugs, medicaments and biological substances; Z90.49 Acquired absence of other specified parts of digestive tract; Z98.51 Tubal ligation status; Z79.899 Other long term (current) drug therapy
CPT/HCPCS: 74280; 45378; J1610; J2704

== ENCOUNTER → 2024-11-10 | Outpatient (CLI) | payer BC ==
[2024-11-10 09:00] LABS: HCT 41.3 % (37.2-46.3); HGB 13.8 g/dL (12.0-15.0); MCH 31.3 pg (27.0-32.0); MCHC 33.4 g/dL (32.0-37.0); MCV 93.7 fL (80.0-97.0); Platelet Count 292 10*3/uL (140-440); RBC 4.41 10*6/uL (4.10-5.20); RDW 14.3 % (11.5-14.5); WBC 9.97 10*3/uL (4.50-10.00)
[2024-11-10 15:51] LABS: Anion Gap 10.6 mmol/L (4.00-12.00); Carbon Dioxide 26.4 mmol/L (21.6-31.8); Chloride 104.0 mmol/L (96-109); Potassium 4.3 mmol/L (3.5-5.5); Sodium 141.0 mmol/L (135-145)
== END | disposition home or self-care (01) ==
LOC: LABPAT 08:30
PROVIDERS: ATTEND Surgery
DX: Z01.812 Encounter for preprocedural laboratory examination (principal); K56.609 Unspecified intestinal obstruction, unspecified as to partial versus complete obstruction
CPT/HCPCS: 36415; 80051; 85027; 86850; 86900; 86901

== ENCOUNTER 2024-11-11 09:46 | Inpatient (IN) | payer BC ==
[2024-11-07 15:30] VITALS: BMI 25.4
[~2024-11-11 09:46] MED LIST changes: +HYDROmorphone 0.5 MG/0.5 ML SYRINGE IVP PRN; -LIDOCAINE 1% (10MG/ML) FOR IV START INTRADERMA PRN
[2024-11-11] MEDS: LACTATED RINGERS 1,000 ML IV SCH ×2 (10:39→15:43)
[2024-11-11] MEDS: IV FLUID CONTINUATION 1,000 ML IV ONE (10:50)
[2024-11-11] MEDS: ONDANSETRON 4 MG/2 ML VIAL IVP ONE (10:51)
[2024-11-11] MEDS: DEXAMETHASONE SOD PHOSPHATE 4 MG/ML 1 ML VIAL IV ONE (10:52)
[2024-11-11] MEDS: ACETAMINOPHEN TAB 500 MG TAB PO PRN (10:56)
[2024-11-11] MEDS: MIDAZOLAM 2 MG/2 ML VIAL IV ONE (11:08)
[2024-11-11] MEDS: HEPARIN SODIUM,PORCINE 5,000 UNIT/ML 1 ML VIAL SQ PRN (11:24)
[2024-11-11] MEDS ORDERED: diphenhydrAMINE 50 MG/ML 1 ML VIAL IVP PRN (11:34)
[2024-11-11] MEDS ORDERED: NALOXONE 0.4 MG/ML 1 ML VIAL IV PRN (11:34)
[2024-11-11] MEDS ORDERED: PHENYLEPHRINE-0.9% NACL SYG 1,000 MCG/10 ML SYRINGE ONE (11:40)
[2024-11-11] MEDS ORDERED: ROCURONIUM 10 MG/ML (5 ML VIAL) IV ONE (11:40)
[2024-11-11] MEDS ORDERED: fentaNYL (PF) 50 MCG/ML 2 ML AMP ONE (11:40)
[2024-11-11] MEDS ORDERED: LIDOCAINE 1% INJ 10MG/ML (20 ML MDV) ONE (11:40)
[2024-11-11] MEDS ORDERED: SUCCINYLCHOLINE CHLORIDE 200 MG/10 ML VIAL IV ONE (11:40)
[2024-11-11] MEDS ORDERED: PROPOFOL 10 MG/ML 20 ML VIAL IV ONE (11:40)
[2024-11-11] MEDS ORDERED: NEOSTIGMINE 1 MG/ML 10 ML VIAL ONE (11:40)
[2024-11-11] MEDS ORDERED: SUGAMMADEX SODIUM 100 MG/ML SYR IV ONE (11:40)
[2024-11-11] MEDS ORDERED: HYDROmorphone (PF) 1 MG/ML ONE (11:40)
[2024-11-11] MEDS ORDERED: MIDAZOLAM 2 MG/2 ML VIAL ONE (11:40)
[2024-11-11] MEDS ORDERED: KETAMINE HCL IN 0.9 % NACL 50 MG/5 ML SYRINGE ONE (11:40)
[2024-11-11] MEDS ORDERED: GLYCOPYRROLATE 0.2 MG/ML 2 ML VIAL ONE (11:40)
[2024-11-11] MEDS: metroNIDAZOLE-NS PMX 500 MG in SALINE 1 100ML.BAG IVPB PRN (11:50)
[2024-11-11] MEDS ORDERED: METOCLOPRAMIDE 5 MG/ML 2 ML VIAL IVP PRN (13:00)
[2024-11-11] MEDS ORDERED: ONDANSETRON 4 MG/2 ML VIAL IVP PRN (13:00)
[2024-11-11] MEDS ORDERED: BENZOCAINE/MENTHOL LOZENG 1 EACH LOZENGE MUCOUS MEM PRN (13:00)
--- NOTE | 2024-11-11 13:00 | P.OP ---
Date of Procedure: 11/11/24 Preoperative Diagnosis: Sigmoid colon stricture Postoperative Diagnosis: Sigmoid colon inflammatory mass Procedure(s) Performed: Sigmoid colectomy, low anterior resection Anesthesia: RAYMOND Surgeon: Jacob Meyer Estimated Blood Loss (ml): 25 Pathology: other (Sigmoid colon) Condition: stable Disposition: PACU Description of Procedure: The patient was placed on the operative table in the supine position. She received general endotracheal tube anesthesia. Her abdomen was prepped and draped in usual sterile fashion after she was placed in dorsal lithotomy position. Her abdomen was palpated. No masses were felt. A low midline skin incision was made and then the Bookwalter tracks placed the wound. The left colon was visualized. The sigmoid colon was visualized. The sigmoid colon appeared to be adherent to the uterus. There appeared to be a 5 cm inflammatory mass at the site of the adherence to the uterus. The colon was dissected off the uterus using finger fracture technique. And then the sigmoid colon mass was visualized. Appeared to be an inflammatory mass. The proximal sigmoid colon was open. And then the anvil for the 25 mm EEA stapler was placed into the colon. The colon was then transected with a LETTY stapler. And then the enterotomy was closed with 3-0 GI silk suture. Using the LigaSure device the mesentery of the bowel was divided. And then the colon was transected approximate 10 cm distal to the mass. The colon was transected with the LETTY stapler. At this point the high school assistant football coach placed the EEA st sizers and then the stapler into the rectum. The stapler spike was driven through the anterior rectal wall near the staple line. And then the anvil was connected to the stapler. The stapler was then closed and fired. The stapler was withdrawn. 2 intact donut tissue rings were retrieved. The anastomosis was then visualized. A bowel clamp was placed on the proximal bowel. I then using a rigid sigmoidoscope the rectum was insufflated. There was no extravasation of air seen at the staple line. The bowel clamp was then removed. The abdomen was irrigated. There was no bleeding seen. There was no obvious sign of metastatic disease. The fascia was then closed with looped #1 PDS suture. Skin was closed alexa. Silver dressing was applied. Patient was sent to recovery room in stable condition.
[2024-11-11] MEDS: ROPIVACAINE 250 MG, HYDROMORPHONE (PF) 5 MG in SODIUM CHLORIDE 0.9% 200 ML EPIDURAL PRN (13:33)
--- NOTE | 2024-11-11 13:37 | P.ANPRN ---
Procedure Note - Anesthesia - Epidural/Spinal Epidural Continuous Date of Procedure: 11/11/24 Procedure Start Time: 11:05 Procedure Stop Time: 11:18 Indication: Acute Post-Operative Pain, Requested by Surgeon Sedation Type: Sedate with meaningful contact maintained Preparation: Sterile Prep Number of Attempts: 1 Position: Sitting Catheter Depth at Skin (cm): 10 Needle Guage: 18 Narrative: Lidocaine 1.5% with epinephrine as a test dose Blood Aspirated: No Pain Paresthesia on Injection Noted: No Events: Uneventful and Well Tolerated
[2024-11-11] MEDS: IPRATROPIUM-ALBUTEROL 3 ML NEB INHALATION STA (14:08)
[2024-11-11] MEDS: HEPARIN SODIUM,PORCINE 5,000 UNIT/ML 1 ML VIAL SQ SCH (17:44)
[2024-11-11 17:47] LABS: Basophils # (A) 0.05 10*3/uL (0.00-0.10); Basophils % (A) 0.2 %; Eosinophils # (A) 0.00 10*3/uL (0.04-0.35); Eosinophils % (A) 0.0 %; HCT 39.0 % (37.2-46.3); HGB 13.2 g/dL (12.0-15.0); Lymphocytes # (A) 0.64 10*3/uL (0.90-5.00); Lymphocytes % (A) 3.0 %; MCH 31.9 pg (27.0-32.0); MCHC 33.8 g/dL (32.0-37.0); MCV 94.2 fL (80.0-97.0); Monocytes # (A) 0.99 10*3/uL (0.20-1.00); Monocytes % (A) 4.6 %; Neutrophils # (A) 19.77 10*3/uL (1.80-7.70); Neutrophils % (A) 91.9 %; Platelet Count 245 10*3/uL (140-440); RBC 4.14 10*6/uL (4.10-5.20); RDW 14.2 % (11.5-14.5); WBC 21.52 10*3/uL (4.50-10.00)
[2024-11-11 17:56] LABS: African American GFR (CKD) >90 (>60 ml/min/1.73 sqM); Anion Gap 12 mmol/L; Blood Urea Nitrogen 14 mg/dL (7-17); Calcium 8.9 mg/dL (8.4-10.2); Carbon Dioxide 22 mmol/L (22-30); Chloride 108 mmol/L (98-107); Glucose 144 mg/dL (74-99); Non-African American GFR(CKD) >90 (>60 ml/min/1.73 sqM); Sodium 142 mmol/L (137-145)
[2024-11-11 18:08] LABS: Potassium 4.2 mmol/L (3.5-5.1)
[2024-11-11] MEDS: FAMOTIDINE 20 MG/2 ML VIAL IV SCH (21:52)
[2024-11-11] MEDS: ALVIMOPAN 12 MG CAPSULE PO SCH (21:52)
[2024-11-12 04:51] LABS: Glucose,Whole Blood 128 mg/dL (70-110)
[2024-11-12] MEDS ORDERED: DEXTROSE 50% SYRINGE 50 ML IVP PRN ×2 (10:50)
--- NOTE | 2024-11-12 11:36 | P.PN ---
Subjective Progress Note Date: 11/12/24 SURGICAL PROGRESS NOTE CHIEF COMPLAINT: Sigmoid colon inflammatory mass HISTORY OF PRESENT ILLNESS: Postop day #1 status post sigmoid colectomy and lower anterior resection. Pain is controlled. Patient having nausea and feeling a little groggy possibly due to the epidural. Nursing staff has talked with anesthesiology and they have decreased the epidural from 6-4. Afebrile. Mild tachycardia improved. Labs pending PHYSICAL EXAM: VITAL SIGNS: Reviewed. GENERAL: Well-developed in no acute distress. ABDOMEN: Soft. Mildly distended. Mild tenderness at incision site. Incisional dressing with some areas of blood saturation. Dressing was pulled back incision is clean dry and intact. There is a tiny amount of blood oozing at the distal incision. NEUROLOGIC: Alert and oriented. Cranial nerves II through XII grossly intact. ASSESSMENT: 1. Sigmoid colon Inflammatory mass PLAN: - Continue epidural - Continue Durán catheter - Encourage patient to increase activity level - Change Optifoam surgical dressing - Repeat CBC in a.m. - Continue antiemetics - Continue IV fluids - Continue clear liquid diet - Encourage patient to use incentive spirometer - GI prophylaxis Pepcid and DVT prophylaxis subcu heparin Physician Engineered Wood Designer note has been reviewed by physician. Signing provider agrees with the documented findings, assessment, and plan of care. Objective - Vital Signs Vital signs: Vital Signs Temp 99.5 F 11/12/24 07:15 Pulse 76 11/12/24 07:15 Resp 16 11/12/24 07:15 BP 111/70 11/12/24 07:15 Pulse Ox 92 L 11/12/24 07:15 FiO2 Intake & Output 11/11/24 11/12/24 11/12/24 18:59 06:59 18:59 Intake Total 850 Output Total 95 300 Balance 755 -300 Weight 58 kg Intake: IV 850 Output: Urine 70 300 Estimated Blood Loss 25 Other: Voiding Method Indwelling Catheter Indwelling Catheter # Voids 0 # Bowel Movements 0 - Labs CBC & Chem 7: 11/11/24 17:32 11/11/24 17:32 Labs: Abnormal Lab Results - Last 24 Hours (Table) 11/11/24 11/11/24 11/12/24 Range/Units 17:32 17:32 04:50 WBC 21.52 H (4.50-10.00) 10*3/uL Immature Gran # 0.07 H (0.00-0.04) 10*3/uL Neutrophils # 19.77 H (1.80-7.70) 10*3/uL Lymphocytes # 0.64 L (0.90-5.00) 10*3/uL Eosinophils # 0.00 L (0.04-0.35) 10*3/uL Chloride 108 H (98-107) mmol/L Glucose 144 H (74-99) mg/dL POC Glucose (mg/dL) 128 H (70-110) mg/dL
[2024-11-12 11:47] LABS: Basophils # (A) 0.05 10*3/uL (0.00-0.10); Basophils % (A) 0.3 %; Eosinophils # (A) 0.12 10*3/uL (0.04-0.35); Eosinophils % (A) 0.8 %; HCT 37.4 % (37.2-46.3); HGB 12.5 g/dL (12.0-15.0); Lymphocytes # (A) 0.95 10*3/uL (0.90-5.00); Lymphocytes % (A) 6.3 %; MCH 31.8 pg (27.0-32.0); MCHC 33.4 g/dL (32.0-37.0); MCV 95.2 fL (80.0-97.0); Monocytes # (A) 0.62 10*3/uL (0.20-1.00); Monocytes % (A) 4.1 %; Neutrophils # (A) 13.17 10*3/uL (1.80-7.70); Neutrophils % (A) 87.9 %; Platelet Count 214 10*3/uL (140-440); RBC 3.93 10*6/uL (4.10-5.20); RDW 14.1 % (11.5-14.5); WBC 15.00 10*3/uL (4.50-10.00)
[2024-11-12 12:29] LABS: African American GFR (CKD) >90 (>60 ml/min/1.73 sqM); Anion Gap 6 mmol/L; Blood Urea Nitrogen 13 mg/dL (7-17); Calcium 8.7 mg/dL (8.4-10.2); Carbon Dioxide 29 mmol/L (22-30); Chloride 103 mmol/L (98-107); Glucose 110 mg/dL (74-99); Non-African American GFR(CKD) >90 (>60 ml/min/1.73 sqM); Potassium 3.8 mmol/L (3.5-5.1); Sodium 138 mmol/L (137-145)
[2024-11-12] MEDS ORDERED: INSULIN LISPRO (HumaLOG) 100 UNIT/ML 10 mL VL SQ SCH (12:30)
--- NOTE | 2024-11-12 13:33 | P.CONS ---
History of Present Illness - Reason for Consult Consult date: 11/12/24 Medical management - History of Present Illness History of present illness; patient 59-year-old lady with past medical history significant for osteoarthritis presented the hospital for elective resection of sigmoid mass. Patient has been having Nithin pain for the last few weeks with change in bowel habits with decrease in frequency. Patient underwent an outpatient colonoscopy that showed segment of narrowing of the sigmoid colon with possibility of stricture versus mass. Patient was scheduled for surgery yesterday and underwent Sigmoid colectomy with low anterior resection, which showed sigmoid colon inflammatory mass. Postoperatively internal medicine team were consulted for medical management REVIEW OF SYSTEMS: CONSTITUTIONAL: No fever, no malaise, no fatigue. HEENT: No recent visual problems or hearing problems. Denied any sore throat. CARDIOVASCULAR: No chest pain, orthopnea, PND, no palpitations, no syncope. PULMONARY: No shortness of breath, no cough, no hemoptysis. GASTROINTESTINAL: Complaining of abdominal pain NEUROLOGICAL: No headaches, no weakness, no numbness. HEMATOLOGICAL: Denies any bleeding or petechiae. GENITOURINARY: Denies any burning micturition, frequency, or urgency. MUSCULOSKELETAL/RHEUMATOLOGICAL: Denies any joint pain, swelling, or any muscle pain. ENDOCRINE: Denies any polyuria or polydipsia. The rest of the 14-point review of systems is negative. PHYSICAL EXAMINATION: GENERAL: The patient is alert and oriented x3, not in any acute distress. Well developed, well nourished. HEENT: Pupils are round and equally reacting to light. EOMI. No scleral icterus. No conjunctival pallor. Normocephalic, atraumatic. No pharyngeal erythema. No thyromegaly. CARDIOVASCULAR: S1 and S2 present. No murmurs, rubs, or gallops. PULMONARY: Chest is clear to auscultation, no wheezing or crackles. ABDOMEN: Soft, surgical incisions seen MUSCULOSKELETAL: No joint swelling or deformity. EXTREMITIES: No cyanosis, clubbing, or pedal edema. NEUROLOGICAL: Gross neurological examination did not reveal any focal deficits. SKIN: No rashes. Assessment and plan Sigmoid colon mass status post sigmoid colectomy Abdominal pain history of osteoarthritis Monitor vital signs Monitor CBC Monitor CMP Monitor electrolytes Ordered pain management Advance diet per surgery Resume home meds Surgery following Labs and medication were reviewed.. Continue same treatment. Continue with symptomatic treatment. Resume home medication. Monitor labs and vitals. DVT and GI prophylaxis. Further recommendations as per clinical course of the patient Dictation was produced using [employer] dictation software. please excuse any grammatical, word or spelling errors. Past Medical History Past Medical History: GERD/Reflux, Osteoarthritis (OA), Pneumonia, Skin Disorder Additional Past Medical History / Comment(s): "there is a narrowing that is almost closed in my colon",pain with bowel movements,MIGRAINES, , GESTATIONAL DIABETES,, CONSTIPATION, small bowel movement, some incontinence of stool, abdominal PAIN AND BLOATING. high BP when in pain-no rx, eczema, neuropathy shivani legs History of Any Multi-Drug Resistant Organisms: None Reported Past Surgical History: Cholecystectomy, Hernia Repair, Orthopedic Surgery, Tubal Ligation Additional Past Surgical History / Comment(s): LEEP PROCEDURE, bunion surgery right foot., LAPAROSCOPIC DANITZA FUNDOPLICATION (10/2018), left eye tear duct surgery, COLONOSCOPY, EGD, scar tissue removed mid upper abd Past Anesthesia/Blood Transfusion Reactions: No Reported Reaction Past Psychological History: Anxiety Additional Psychological History / Comment(s): UNDER CONTROL AT THIS TIME Smoking Status: Current every day smoker Past Alcohol Use History: None Reported Additional Past Alcohol Use History / Comment(s): STARTED SMOKING AT AGE 18, SMOKES 1/2 PPD. Past Drug Use History: Marijuana Additional Drug Use History / Comment(s): daily use. AWARE NOT TO USE 24 HRS PRIOR TO PROCEDURE. - Past Family History Father Family Medical History: Cancer Additional Family Medical History / Comment(s): prostate Mother Family Medical History: Cancer Additional Family Medical History / Comment(s): lung Medications and Allergies Home Medications Medication Instructions Recorded Confirmed Type No Known Home Medications 10/22/24 11/07/24 History Allergies Allergy/AdvReac Type Severity Reaction Status Date / Time povidone-iodine Allergy Itching,burning Verified 11/11/24 10:30 [From Betadine] skin,rash soap [From Betadine] Allergy Itching,burning Verified 11/11/24 10:30 skin,rash hydrocodone [From Cade] AdvReac Nausea & Verified 11/11/24 10:30 Vomiting Physical Exam Vitals: Vital Signs Temp Pulse Resp BP BP BP Pulse Ox 11/12/24 07:15 99.5 F 76 16 111/70 92 L 11/12/24 04:36 107 H 151/80 95 11/12/24 04:31 80 123/83 97 11/12/24 01:06 98 F 88 17 120/72 95 11/11/24 19:45 17 11/11/24 19:15 97.9 F 76 17 133/72 96 11/11/24 17:15 62 121/77 99 11/11/24 17:00 73 126/86 97 11/11/24 16:45 75 108/73 97 11/11/24 16:30 74 125/74 95 11/11/24 16:16 95 11/11/24 16:15 73 127/79 100 11/11/24 16:00 73 122/76 99 11/11/24 15:45 77 128/76 98 11/11/24 15:30 91 140/68 96 11/11/24 15:15 97.3 F L 71 16 156/86 96 11/11/24 14:49 84 16 146/70 95 11/11/24 14:48 97.6 F 75 17 128/76 97 11/11/24 14:33 64 16 134/70 98 11/11/24 14:18 74 16 147/72 98 11/11/24 14:03 60 16 103/52 100 11/11/24 13:48 66 14 109/74 100 11/11/24 13:33 66 18 140/70 100 11/11/24 13:18 75 16 144/79 100 11/11/24 13:03 88 22 170/86 100 11/11/24 11:25 69 16 111/76 100 11/11/24 11:20 75 18 111/92 100 11/11/24 11:15 71 14 116/91 100 11/11/24 11:10 71 18 121/97 100 11/11/24 11:05 80 16 142/90 100 Intake and Output 11/11/24 11/12/24 11/12/24 22:59 06:59 14:59 Output Total 50 300 Balance -50 -300 Output: Urine 50 300 Other: Voiding Method Indwelling Catheter Indwelling Catheter # Voids 0 # Bowel Movements 0 Results CBC & Chem 7: 11/12/24 11:35 11/12/24 11:35 Labs: Abnormal Lab Results - Last 24 Hours (Table) 0711/11/24 11/12/24 Range/Units 17:32 17:32 04:50 WBC 21.52 H (4.50-10.00) 10*3/uL Immature Gran # 0.07 H (0.00-0.04) 10*3/uL Neutrophils # 19.77 H (1.80-7.70) 10*3/uL Lymphocytes # 0.64 L (0.90-5.00) 10*3/uL Eosinophils # 0.00 L (0.04-0.35) 10*3/uL Chloride 108 H (98-107) mmol/L Glucose 144 H (74-99) mg/dL POC Glucose (mg/dL) 128 H (70-110) mg/dL
--- NOTE | 2024-11-12 14:49 | P.PN ---
Progress Note - Text Progress Note Date: 11/12/24 Postoperative day #1 status post sigmoid colectomy ,epidural catheter placed for postoperative analgesia, patient doing well epidural site okay, patient currently on combination of epidural infusion solution of Ropivacaine 0.0625% and Dilaudid 20 g per mL the infusion rate at 6 ml per hour , patient had no motor deficit epidural site okay , vital signs stable ,VAS 0 /10 , patient complaining of some nausea,. For this reason we will decrease the rate to 4 mL/h Assessment and plan= post operative day # 1 patient doing well ,pain well controlled , there is no anesthesia related complications
[2024-11-13 10:05] LABS: Basophils # (A) 0.04 10*3/uL (0.00-0.10); Basophils % (A) 0.3 %; Eosinophils # (A) 0.20 10*3/uL (0.04-0.35); Eosinophils % (A) 1.5 %; HCT 36.2 % (37.2-46.3); HGB 12.1 g/dL (12.0-15.0); Lymphocytes # (A) 1.18 10*3/uL (0.90-5.00); Lymphocytes % (A) 9.0 %; MCH 31.3 pg (27.0-32.0); MCHC 33.4 g/dL (32.0-37.0); MCV 93.8 fL (80.0-97.0); Monocytes # (A) 0.61 10*3/uL (0.20-1.00); Monocytes % (A) 4.7 %; Neutrophils # (A) 11.03 10*3/uL (1.80-7.70); Neutrophils % (A) 84.1 %; Platelet Count 204 10*3/uL (140-440); RBC 3.86 10*6/uL (4.10-5.20); RDW 13.9 % (11.5-14.5); WBC 13.11 10*3/uL (4.50-10.00)
--- NOTE | 2024-11-13 12:33 | P.PN ---
Subjective Progress Note Date: 11/13/24 59-year-old lady with past medical history significant for osteoarthritis presented the hospital for elective resection of sigmoid mass. Patient has been having Nithin pain for the last few weeks with change in bowel habits with decrease in frequency. Patient underwent an outpatient colonoscopy that showed segment of narrowing of the sigmoid colon with possibility of stricture versus mass. Patient was scheduled for surgery yesterday and underwent Sigmoid colectomy with low anterior resection, which showed sigmoid colon inflammatory mass. Postoperatively internal medicine team were consulted for medical management 11/13. Patient seen and examined. Patient is currently on clear liquid diet, wants to advance it to regular, frustrated about being on clear liquid diet at this time REVIEW OF SYSTEMS: CONSTITUTIONAL: No fever, no malaise,. CARDIOVASCULAR: No chest pain, no palpitations, no syncope. PULMONARY: No shortness of breath, no cough, GASTROINTESTINAL: No diarrhea, no nausea, no vomiting, no abdominal pain. NEUROLOGICAL: No headaches, no weakness, PHYSICAL EXAMINATION: GENERAL: The patient is alert and oriented x3, not in any acute distress. Well developed, well nourished. HEENT: Pupils are round and equally reacting to light. EOMI. No scleral icterus. No conjunctival pallor. Normocephalic, atraumatic. No pharyngeal erythema. No thyromegaly. CARDIOVASCULAR: S1 and S2 present. No murmurs, rubs, or gallops. PULMONARY: Chest is clear to auscultation, no wheezing or crackles. ABDOMEN: Soft, tender, surgical incision site MUSCULOSKELETAL: No joint swelling or deformity. EXTREMITIES: No cyanosis, clubbing, or pedal edema. NEUROLOGICAL: Gross neurological examination did not reveal any focal deficits. SKIN: No rashes. Assessment and plan Sigmoid colon mass status post sigmoid colectomy Abdominal pain history of osteoarthritis Monitor vital signs Monitor CBC Monitor CMP Monitor electrolytes Continue pain management Advance diet per surgery Surgery following Labs and medication were reviewed.. Continue same treatment. Continue with symptomatic treatment. Resume home medication. Monitor labs and vitals. DVT and GI prophylaxis. Further recommendations as per clinical course of the patient Dictation was produced using [employer] dictation software. please excuse any grammatical, word or spelling errors. Objective - Vital Signs Vital signs: Vital Signs Temp 98.3 F 11/13/24 07:01 Pulse 78 11/13/24 07:01 Resp 15 11/13/24 07:01 BP 137/79 11/13/24 07:01 Pulse Ox 97 11/13/24 07:01 FiO2 Intake & Output 11/12/24 11/13/24 11/13/24 18:59 06:59 18:59 Intake Total 210 Output Total 1200 2000 Balance -1200 -1790 Intake: Intake, IV Titration 210 Amount Ropivacaine 250 mg 210 Hydromorphone (Pf) 5 mg In Sodium Chloride 0.9% 200 ml @ Per Protocol EPIDURAL .Q0M PRN Rx#: [id number] Output: Urine 1200 2000 Other: Voiding Method Indwelling Catheter Indwelling Catheter - Labs CBC & Chem 7: 11/13/24 09:42 11/12/24 11:35 Labs: Abnormal Lab Results - Last 24 Hours (Table) 11/12/24 11/12/24 11/13/24 Range/Units 11:35 11:35 09:42 WBC 15.00 H 13.11 H (4.50-10.00) 10*3/uL RBC 3.93 L 3.86 L (4.10-5.20) 10*6/uL Hct 36.2 L (37.2-46.3) % Immature Gran # 0.09 H 0.05 H (0.00-0.04) 10*3/uL Neutrophils # 13.17 H 11.03 H (1.80-7.70) 10*3/uL Glucose 110 H (74-99) mg/dL
--- NOTE | 2024-11-13 13:42 | P.PN ---
Progress Note - Text Progress Note Date: 11/13/24 Patient was seen and evaluated at bedside. Postop day # 1 status post low anterior resection Sigmoid colectomy . Patient tried sitting comfortably . Patient is comfortably lying on the bed. Rated pain levels are 1-2 out of 10 in severity. Moving extremities well without any difficulty. He denied any red flag symptoms, pain over the catheter site. Physical exam: Vital signs: stable, afebrile Catheter site: Clean, and intact Dressing. no tenderness over the catheter area. Moving lower extremities without difficulty. Heparin 5000 units subcutaneous every 8 hours. Assessment: Acute postoperative pain secondary to low anterior resection sigmoid colectomy, Plan: Continue epidural infusion solution of Ropivacaine 0.0625% and Dilaudid 20 g per ml at the rate of 4 mL per hour. We will continue epidural catheter one more day unless primary team planned to send the patient home then we will discontinue. Call anesthesia as needed
[2024-11-14 08:18] LABS: Basophils # (A) 0.02 X 10*3/uL (0.00-0.10); Basophils % (A) 0.2 %; Eosinophils # (A) 0.20 X 10*3/uL (0.04-0.35); Eosinophils % (A) 2.1 %; HCT 36.6 % (37.2-46.3); HGB 11.9 g/dL (12.0-15.0); Immature Grans, Automated 0.40 %; Lymphocytes # (A) 1.51 X 10*3/uL (0.90-5.00); Lymphocytes % (A) 15.8 %; MCH 30.7 pg (27.0-32.0); MCHC 32.5 g/dL (32.0-37.0); MCV 94.6 FL (80.0-97.0); Monocytes # (A) 0.52 X 10*3/uL (0.20-1.00); Monocytes % (A) 5.4 %; NRBC Per 100 WBC 0 X 10*3/uL (0.00-0.01); Neutrophils # (A) 7.26 X 10*3/uL (1.80-7.70); Neutrophils % (A) 76.1 %; Platelet Count 234 X 10*3/uL (140-440); RBC 3.87 X 10*6/uL (4.10-5.20); RDW 14.0 % (11.5-14.5); WBC 9.55 X 10*3/uL (4.50-10.00)
--- NOTE | 2024-11-14 12:12 | P.PN ---
Subjective Progress Note Date: 11/14/24 The patient is feeling well. She has minimal pain. She has had bowel sounds and some minimal flatus. On exam vital signs appear stable. Abdomen is soft. Incision is clean dry intact. Status post low anterior resection. Pathology is still pending. Patient will be discharged once she has return of bowel function. Objective - Vital Signs Vital signs: Vital Signs Temp 98.2 F 11/14/24 07:29 Pulse 72 11/14/24 07:29 Resp 15 11/14/24 07:29 BP 158/75 11/14/24 07:29 Pulse Ox 96 11/14/24 07:29 FiO2 Intake & Output 11/13/24 11/14/24 11/14/24 18:59 06:59 18:59 Output Total 800 775 Balance -800 -775 Output: Urine 800 775 Other: Voiding Method Indwelling Catheter Indwelling Catheter Indwelling Catheter - Labs CBC & Chem 7: 11/14/24 05:00 11/12/24 11:35 Labs: Abnormal Lab Results - Last 24 Hours (Table) 11/14/24 Range/Units 05:00 RBC 3.87 L (4.10-5.20) X 10*6/uL Hgb 11.9 L (12.0-15.0) g/dL Hct 36.6 L (37.2-46.3) %
--- NOTE | 2024-11-14 12:13 | P.PN ---
Progress Note - Text Progress Note Date: 11/14/24 Postoperative day #3 status post sigmoid colectomy ,epidural catheter placed for postoperative analgesia, patient doing well epidural site okay, patient currently on combination of epidural infusion solution of Ropivacaine 0.0625% and Dilaudid 20 g per mL the infusion rate at 4 ml per hour , patient had no motor deficit epidural site okay , vital signs stable ,VAS 0 /10 . Assessment and plan= post operative day # 3 patient doing well ,pain well controlled , there is no anesthesia related complications, epidural catheter, will be discontinued today
[2024-11-14] MEDS: HYDROmorphone 1 MG/ML 1 ML SYRINGE IVP PRN (19:39)
--- NOTE | 2024-11-15 07:16 | P.PN ---
Subjective Progress Note Date: 11/15/24 Patient is resting company bed. She has had minimal bowel function. She has no complaints of pain. She has had no nausea. On exam vital signs are stable. Abdomen soft. Status post sigmoid colectomy. Patient has had minimal bowel function. Patient will remain on full liquids. We dissipate discharge home in next 48 hours. Objective - Vital Signs Vital signs: Vital Signs Temp 98.3 F 11/15/24 01:59 Pulse 78 11/15/24 01:59 Resp 16 11/15/24 01:59 BP 165/71 11/15/24 01:59 Pulse Ox 96 11/15/24 01:59 FiO2 Intake & Output 11/14/24 11/15/24 11/15/24 18:59 06:59 18:59 Output Total 1200 Balance -1200 Output: Urine 1200 Uretheral (Durán) 1200 Other: Voiding Method Indwelling Catheter # Voids 1 9 - Labs CBC & Chem 7: 11/14/24 05:00 11/12/24 11:35 Labs: Abnormal Lab Results - Last 24 Hours (Table) 11/14/24 Range/Units 05:00 RBC 3.87 L (4.10-5.20) X 10*6/uL Hgb 11.9 L (12.0-15.0) g/dL Hct 36.6 L (37.2-46.3) %
--- NOTE | 2024-11-15 18:44 | P.PN ---
Subjective Progress Note Date: 11/14/24 59-year-old lady with past medical history significant for osteoarthritis presented the hospital for elective resection of sigmoid mass. Patient has been having Nithin pain for the last few weeks with change in bowel habits with decrease in frequency. Patient underwent an outpatient colonoscopy that showed segment of narrowing of the sigmoid colon with possibility of stricture versus mass. Patient was scheduled for surgery yesterday and underwent Sigmoid colectomy with low anterior resection, which showed sigmoid colon inflammatory mass. Postoperatively internal medicine team were consulted for medical management Objective - Vital Signs Vital signs: Vital Signs Temp 98.2 F 11/14/24 07:29 Pulse 72 11/14/24 07:29 Resp 15 11/14/24 07:29 BP 158/75 11/14/24 07:29 Pulse Ox 96 11/14/24 07:29 FiO2 Intake & Output 11/13/24 11/14/24 11/14/24 18:59 06:59 18:59 Output Total 800 775 Balance -800 -775 Output: Urine 800 775 Other: Voiding Method Indwelling Catheter Indwelling Catheter Indwelling Catheter - Exam GENERAL: The patient is alert and oriented x3, not in any acute distress. Well developed, well nourished. HEENT: Pupils are round and equally reacting to light. EOMI. No scleral icterus. No conjunctival pallor. Normocephalic, atraumatic. No pharyngeal erythema. No thyromegaly. CARDIOVASCULAR: S1 and S2 present. No murmurs, rubs, or gallops. PULMONARY: Chest is clear to auscultation, no wheezing or crackles. ABDOMEN: Soft, tender, surgical incision site MUSCULOSKELETAL: No joint swelling or deformity. EXTREMITIES: No cyanosis, clubbing, or pedal edema. NEUROLOGICAL: Gross neurological examination did not reveal any focal deficits. SKIN: No rashes. - Labs CBC & Chem 7: 11/14/24 05:00 11/12/24 11:35 Labs: Abnormal Lab Results - Last 24 Hours (Table) 11/14/24 Range/Units 05:00 RBC 3.87 L (4.10-5.20) X 10*6/uL Hgb 11.9 L (12.0-15.0) g/dL Hct 36.6 L (37.2-46.3) % Assessment and Plan Assessment: Sigmoid colon mass status post sigmoid colectomy Abdominal pain history of osteoarthritis Monitor vital signs Monitor CBC Monitor CMP Monitor electrolytes Continue pain management Advance diet per surgery Surgery following
--- NOTE | 2024-11-15 18:45 | P.PN ---
Subjective Progress Note Date: 11/15/24 59-year-old lady with past medical history significant for osteoarthritis presented the hospital for elective resection of sigmoid mass. Patient has been having Nithin pain for the last few weeks with change in bowel habits with decrease in frequency. Patient underwent an outpatient colonoscopy that showed segment of narrowing of the sigmoid colon with possibility of stricture versus mass. Patient was scheduled for surgery yesterday and underwent Sigmoid colectomy with low anterior resection, which showed sigmoid colon inflammatory mass. Postoperatively internal medicine team were consulted for medical management 11/15/2024 Patient is seen and evaluated resting comfortably in bed; denies any specific complaints Signs are reviewed and remained stable Patient reports fair pain control; no complaint of nausea; minimal bowel function is reported Patient is status post sigmoid colectomy; currently on a full liquid diet General Surgery on board; anticipating discharge in next 48 hours Objective - Vital Signs Vital signs: Vital Signs Temp 97.9 F 11/15/24 07:23 Pulse 73 11/15/24 07:23 Resp 16 11/15/24 07:23 BP 171/85 11/15/24 07:23 Pulse Ox 96 11/15/24 07:23 FiO2 Intake & Output 11/14/24 11/15/24 11/15/24 18:59 06:59 18:59 Output Total 1200 Balance -1200 Output: Urine 1200 Uretheral (Durán) 1200 Other: Voiding Method Indwelling Catheter Toilet # Voids 1 9 - Exam GENERAL: The patient is alert and oriented x3, not in any acute distress. Well developed, well nourished. HEENT: Pupils are round and equally reacting to light. EOMI. No scleral icterus. No conjunctival pallor. Normocephalic, atraumatic. No pharyngeal erythema. No thyromegaly. CARDIOVASCULAR: S1 and S2 present. No murmurs, rubs, or gallops. PULMONARY: Chest is clear to auscultation, no wheezing or crackles. ABDOMEN: Soft, tender, surgical incision site MUSCULOSKELETAL: No joint swelling or deformity. EXTREMITIES: No cyanosis, clubbing, or pedal edema. NEUROLOGICAL: Gross neurological examination did not reveal any focal deficits. SKIN: No rashes. - Labs CBC & Chem 7: 11/14/24 05:00 11/12/24 11:35 Assessment and Plan Assessment: Sigmoid colon mass status post sigmoid colectomy Abdominal pain history of osteoarthritis Monitor vital signs Monitor CBC Monitor CMP Monitor electrolytes Continue pain management Advance diet per surgery Surgery following
[2024-11-16 07:29] LABS: Basophils # (A) 0.03 10*3/uL (0.00-0.10); Basophils % (A) 0.4 %; Eosinophils # (A) 0.30 10*3/uL (0.04-0.35); Eosinophils % (A) 3.7 %; HCT 37.6 % (37.2-46.3); HGB 13.0 g/dL (12.0-15.0); Lymphocytes # (A) 1.96 10*3/uL (0.90-5.00); Lymphocytes % (A) 24.0 %; MCH 31.7 pg (27.0-32.0); MCHC 34.6 g/dL (32.0-37.0); MCV 91.7 fL (80.0-97.0); Monocytes # (A) 0.65 10*3/uL (0.20-1.00); Monocytes % (A) 8.0 %; Neutrophils # (A) 5.19 10*3/uL (1.80-7.70); Neutrophils % (A) 63.5 %; Platelet Count 278 10*3/uL (140-440); RBC 4.10 10*6/uL (4.10-5.20); RDW 13.5 % (11.5-14.5); WBC 8.16 10*3/uL (4.50-10.00)
[2024-11-16 07:50] LABS: African American GFR (CKD) >90 (>60 ml/min/1.73 sqM); Anion Gap 8 mmol/L; Blood Urea Nitrogen 3 mg/dL (7-17); Calcium 8.9 mg/dL (8.4-10.2); Carbon Dioxide 29 mmol/L (22-30); Chloride 102 mmol/L (98-107); Glucose 79 mg/dL (74-99); Non-African American GFR(CKD) >90 (>60 ml/min/1.73 sqM); Potassium 4.3 mmol/L (3.5-5.1); Sodium 139 mmol/L (137-145)
--- NOTE | 2024-11-16 10:46 | P.PN ---
Subjective Progress Note Date: 11/16/24 The patient feels better. She has been ambulating. She has finally had some flatus. On exam vital signs appear stable. Abdomen soft. Status post low anterior resection for inflammatory colonic mass. Patient will be most likely discharge home tomorrow. Objective - Vital Signs Vital signs: Vital Signs Temp 98.1 F 11/16/24 07:54 Pulse 73 11/16/24 07:54 Resp 17 11/16/24 07:54 BP 153/84 11/16/24 07:54 Pulse Ox 94 L 11/16/24 07:54 FiO2 Intake & Output 11/15/24 11/16/24 11/16/24 18:59 06:59 18:59 Other: Voiding Method Toilet Toilet Toilet # Voids 2 6 - Labs CBC & Chem 7: 11/16/24 06:44 11/16/24 06:44 Labs: Abnormal Lab Results - Last 24 Hours (Table) 11/16/24 Range/Units 06:44 BUN 3 L (7-17) mg/dL
[2024-11-17] MEDS ORDERED: ACETAMINOPHEN TAB 325 MG TAB PO PRN (07:27)
[2024-11-17 07:51] VITALS: BP 170/88; PULSE 89; RESP 16; TEMP 98.5
[2024-11-17] MEDS: traMADol 50 MG TAB PO PRN (08:02)
--- NOTE | 2024-11-17 13:01 | P.DS ---
Providers Date of admission: 11/11/24 09:46 Expected date of discharge: 11/17/24 Attending physician: Jacob Meyer Consults: 11/11/24 13:00 Consult Physician Routine Consulting Provider: Aidan Ramirez Consult Reason/Comments: Medical management Do you want consulting provider notified?: Yes Primary care physician: Julia Valdes Hospital Course: Discharge diagnosis 1. Sigmoid colon Inflammatory mass Hospital course This is a 59-year-old female who was found to have a possible sigmoid colon stricture. She is status post sigmoid colectomy with low anterior resection for a sigmoid colon inflammatory mass. Her pain is controlled. She is tolerating diet. She is having flatus. She is afebrile. She is stable for discharge. Please refer to chart for any further details. [employer] Physical Therapist note has been reviewed by physician. Signing provider agrees with the documented findings, assessment, and plan of care. Patient Condition at Discharge: Stable Plan - Discharge Summary Discharge Rx Participant: Yes New Discharge Prescriptions: New Acetaminophen Tab [Tylenol Tab] 650 mg PO Q4H PRN #30 tablet PRN Reason: Pain traMADol HCl [Ultram] 100 mg PO Q6HR PRN 3 Days #24 tab PRN Reason: Pain Docusate [Colace] 100 mg PO BID #30 capsule Ibuprofen [Motrin] 600 mg PO Q8HR PRN #30 tab PRN Reason: Pain Discharge Medication List Acetaminophen Tab [Tylenol Tab] 650 mg PO Q4H PRN #30 tablet 11/17/24 [Rx] Docusate [Colace] 100 mg PO BID #30 capsule 11/17/24 [Rx] Ibuprofen [Motrin] 600 mg PO Q8HR PRN #30 tab 11/17/24 [Rx] traMADol HCl [Ultram] 100 mg PO Q6HR PRN 3 Days #24 tab 11/17/24 [Rx] Follow up Appointment(s)/Referral(s): [facility], [NON-STAFF] - As Needed ([facility] will call you to schedule your in home nursing visits. ) Jacob Meyer MD [STAFF PHYSICIAN] - 1 Week Activity/Diet/Wound Care/Special Instructions: No driving while taking Ultram No lifting over 10 pounds Shower daily. No soaking or tub baths for 2 weeks Very light activity until you are reevaluated at your follow up appointment with your surgeon Ambulate frequently Stay on a full liquid diet until you have a bowel movement Discharge Disposition: HOME SELF-CARE
--- NOTE | 2024-11-18 00:46 | P.PN ---
Subjective 59-year-old lady with past medical history significant for osteoarthritis presented the hospital for elective resection of sigmoid mass. Patient has been having Nithin pain for the last few weeks with change in bowel habits with decrease in frequency. Patient underwent an outpatient colonoscopy that showed segment of narrowing of the sigmoid colon with possibility of stricture versus mass. Patient was scheduled for surgery yesterday and underwent Sigmoid colectomy with low anterior resection, which showed sigmoid colon inflammatory mass. Postoperatively internal medicine team were consulted for medical management 11/15/2024 Patient is seen and evaluated resting comfortably in bed; denies any specific complaints Signs are reviewed and remained stable Patient reports fair pain control; no complaint of nausea; minimal bowel function is reported Patient is status post sigmoid colectomy; currently on a full liquid diet General Surgery on board; anticipating discharge in next 48 hours 11/17 Patient with no vomiting, she eats well She was nauseated this morning so she did not eat her breakfast though Her abdominal pain is 5/10 No bowel movement but passing gas Getting normal saline 75 mL/h Surgery may consider discharging home today or tomorrow On exam she has vertical wound, closed and healing Objective - Vital Signs Vital signs: Vital Signs Temp 98.5 F 11/17/24 07:51 Pulse 89 11/17/24 07:51 Resp 16 11/17/24 07:51 BP 170/88 11/17/24 07:51 Pulse Ox 94 L 11/17/24 07:51 FiO2 Intake & Output 11/16/24 11/17/24 11/17/24 18:59 06:59 18:59 Other: Voiding Method Toilet # Voids 3 7 - Exam GENERAL: The patient is alert and oriented x3, not in any acute distress. Well developed, well nourished. HEENT: Pupils are round and equally reacting to light. EOMI. No scleral icterus. No conjunctival pallor. Normocephalic, atraumatic. No pharyngeal erythema. No thyromegaly. CARDIOVASCULAR: S1 and S2 present. No murmurs, rubs, or gallops. PULMONARY: Chest is clear to auscultation, no wheezing , no crackles. -ABDOMEN: Soft, nontender, nondistended, normoactive bowel sounds. No palpable organomegaly. vertical wound, closed and healing MUSCULOSKELETAL: No joint swelling or deformity. EXTREMITIES: No cyanosis, clubbing, or pedal edema. NEUROLOGICAL: Gross neurological examination did not reveal any focal deficits. SKIN: No rashes. no petechiae. - Labs CBC & Chem 7: 11/16/24 06:44 11/16/24 06:44 Assessment and Plan Assessment: Sigmoid colon mass status post sigmoid colectomy Abdominal pain history of osteoarthritis Plan: Monitor vital signs Monitor CBC Monitor CMP Monitor electrolytes Continue pain management Advance diet per surgery Surgery following
== END 2024-11-17 14:57 | disposition home or self-care (01) | DRG 331 ==
LOC: 2ORMAIN 09:46 → 4SSUR 14:34
PROVIDERS: ADMIT Surgery; ATTEND Surgery
PROC: 0DTN0ZZ Resection of Sigmoid Colon, Open Approach (ICD-10-PCS; principal; 2024-11-11 11:15)
DX: K56.699 Other intestinal obstruction unspecified as to partial versus complete obstruction (principal); E11.9 Type 2 diabetes mellitus without complications; G43.909 Migraine, unspecified, not intractable, without status migrainosus; F17.210 Nicotine dependence, cigarettes, uncomplicated; M19.90 Unspecified osteoarthritis, unspecified site; G89.29 Other chronic pain; M54.9 Dorsalgia, unspecified; K21.9 Gastro-esophageal reflux disease without esophagitis; Z88.5 Allergy status to narcotic agent; Z91.041 Radiographic dye allergy status; Z87.19 Personal history of other diseases of the digestive system; Z98.51 Tubal ligation status; Z90.49 Acquired absence of other specified parts of digestive tract
CPT/HCPCS: 80048; 85025; 88307; 94760